=== PATIENT | female | born 1995 | race Hispanic/Latino ===

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

== ENCOUNTER 2017-03-07 05:09 | Emergency (ER) | payer OTHER ==
[~2017-03-07] VITALS: Ht 154.9 cm; Wt 59.0 kg
[2017-03-07 08:04] LABS: CONTROL LINE UCG INT CTR LINE PRESENT
[2017-03-07] MEDS ORDERED: GASTROGRAFIN SOLUTION 30ML PO ONE (09:10)
[2017-03-07 09:25] LABS: BASO % 0.6 % (0.0-1.0); EOS # 0.3 10^3/uL (0.0-0.50); EOS % 4.1 % (0.0-3.0); IMMATURE GRANULOCYTE % 0.1 % (0-0); LYMPH # 1.7 10^3/uL (1.5-6.5); LYMPH % 24.8 % (24.0-44.0); MEAN CORPUSCULAR HEMOGLOBIN 27.8 pg (27.0-33.0); MEAN CORPUSCULAR HGB CONC 32.6 g/dl (32.0-36.5); MEAN CORPUSCULAR VOLUME 85.4 fl (80.0-96.0); MONO # 0.5 10^3/uL (0.0-0.8); MONO % 7.7 % (0.0-5.0); NEUTROPHILS # 4.4 10^3/uL (1.8-7.7); NEUTROPHILS % 62.7 % (36.0-66.0); PLATELET COUNT, AUTOMATED 227 10^3/uL (150-450); RED CELL DISTRIBUTION WIDTH 13.1 % (11.5-14.5)
[2017-03-07] MEDS ORDERED: GASTROGRAFIN SOLUTION 30ML (Q9963) PO ONE (09:40)
[2017-03-07 09:48] LABS: ALBUMIN 3.6 GM/DL (3.2-5.2); ALBUMIN/GLOBULIN RATIO 0.92 (1.00-1.93); ALKALINE PHOSPHATASE 63 U/L (45-117); ALT/SGPT 24 U/L (12-78); ANION GAP 9 MEQ/L (8-16); AST/SGOT 21 U/L (15-37); BILIRUBIN,TOTAL 0.5 MG/DL (0.2-1.0); BLOOD UREA NITROGEN 9 MG/DL (7-18); CARBON DIOXIDE LEVEL 25 MEQ/L (21-32); CHLORIDE LEVEL 106 MEQ/L (98-107); CREATININE FOR GFR 0.65 MG/DL (0.55-1.02); GLUCOSE, FASTING 94 MG/DL (70-105); POTASSIUM SERUM 3.8 MEQ/L (3.5-5.1); SODIUM LEVEL 140 MEQ/L (136-145); TOTAL PROTEIN 7.5 GM/DL (6.4-8.2)
[2017-03-07] MEDS ORDERED: ISOVUE-370 76% 100ML VIAL (Q9967) As Ordered ONE (10:29)
--- NOTE | 2017-03-07 11:04 | REP ---
CT abdomen pelvis with IV and oral contrast: There are no comparisons. The visualized lung hoff are unremarkable. The hepatic parenchyma is homogeneous. The gallbladder, pancreas and spleen are unremarkable. The adrenals, kidneys and abdominal aorta are unremarkable. There is no hydronephrosis or perinephric stranding. The renal cortices enhance normally. There is no bowel distension or obstruction. Mesentery is unremarkable except that there is a minimal volume of intraperitoneal adipose. Pelvis: The appendix has a normal appearance. There is no ascites or adenopathy. The bladder is unremarkable. There is an IUD centrally placed in the endometrial canal in the uterine fundus. The uterus is otherwise unremarkable. The adnexa are unremarkable. Impression: Essentially negative CT study of the abdomen and pelvis. There is an IUD centrally placed in the uterine fundus. The uterus is tilted to the right. Signed by John Andersen MD 03/07/2017 10:55 A
[2017-03-07] MEDS ORDERED: MORPHINE 2 MG/ML 1ML SYRINGE As Ordered ONE (11:11)
[2017-03-07] MEDS ORDERED: MORPHINE 2 MG/ML 1ML SYRINGE IV ONE (11:15)
[2017-03-07] MEDS ORDERED: NAPR500T PO (11:52)
[2017-03-07 12:22] VITALS: BP 124/76
[2017-03-09] MEDS ORDERED: MACR100C43 PO (17:07)
== END 2017-03-07 12:27 | disposition home or self-care (01) ==
LOC: M ED 05:09
DX: N94.6 Dysmenorrhea, unspecified (principal); R10.9 Unspecified abdominal pain; Z87.42 Personal history of other diseases of the female genital tract; Z84.2 Family history of other diseases of the genitourinary system
CPT/HCPCS: 74177; 80053; 81001; 84703; 85025; 87088; 87186; 96374; 99283; Q9963; Q9967

== ENCOUNTER 2017-03-10 14:10 | Emergency (ER) | payer OTHER ==
[~2017-03-10] VITALS: Ht 154.9 cm; Wt 59.1 kg
[~2017-03-10 14:10] MED LIST: MACR100C43 PO; NAPR500T PO
[2017-03-10 17:09] LABS: CONTROL LINE HCG INT CTR LINE PRESENT
--- NOTE | 2017-03-10 17:20 | REPUSA ---
Clinical history: Pain. Findings: Real-time transabdominal and transvaginal ultrasound images of the pelvis were obtained. An anteverted uterus is noted, measuring 6.4 x 2.6 x 4.4 cm. The uterus demonstrates normal echotexture and echogenicity. The endometrial stripe is within normal limits. IUD is in place. The right ovary m easures 3.3 x 2.5 x 2.1 cm. The left ovary measures 3.0 x 2.6 x 2.0 cm. No adnexal masses are seen. C olor Doppler flow is seen within both ovaries. There is no evidence of free fluid. Impression: Unremarkable ultrasound examination of the pelvis.
[2017-03-10] MEDS ORDERED: BACTRIM 160MG/800MG DS TAB PO ONE (17:30)
[2017-03-10] MEDS ORDERED: BACT800T5 PO (17:30)
[2017-03-10 17:45] VITALS: BP 119/82
== END 2017-03-10 17:46 | disposition home or self-care (01) ==
LOC: M ED 14:10
DX: N39.0 Urinary tract infection, site not specified (principal); Z79.899 Other long term (current) drug therapy

== ENCOUNTER → 2017-12-05 | Outpatient (REF) ==
[2017-12-06 08:16] LABS: HERPES ZOSTER, VARICELLA IgG 1230 index (Immune >165)
== END ==
LOC: M LAB 09:28
DX: Z02.89 Encounter for other administrative examinations (principal)

== ENCOUNTER 2018-05-01 07:32 | Emergency (ER) | payer OTHER ==
[2018-05-01] MEDS: IPRATROPIUM 0.5MG/ALBUTEROL 2.5MG INH SOL UD 3ML (DUONEB)(J7620) NEB ×2 (08:29→08:58)
== END 2018-05-01 09:29 | disposition home or self-care (01) ==
LOC: M ED 07:32
DX: J20.9 Acute bronchitis, unspecified (principal); Z91.030 Bee allergy status; Z91.040 Latex allergy status
CPT/HCPCS: 71046

== ENCOUNTER 2018-05-03 14:17 | Emergency (ER) | payer OTHER | END 2018-05-03 15:54 | disposition home or self-care (01) | LOC: M ED 14:17 | DX: J20.9 Acute bronchitis, unspecified (principal); J06.9 Acute upper respiratory infection, unspecified; Z87.42 Personal history of other diseases of the female genital tract; Z91.030 Bee allergy status; Z91.040 Latex allergy status | CPT/HCPCS: 99283 ==

== ENCOUNTER 2020-01-07 07:15 | Emergency (ER) | payer MEDICAID, OTHER, SELFPAY ==
[~2020-01-07 07:15] MED LIST changes: +BACT800T5 PO; +MEDR4PAK PO; +NAPR-837 PO; -NAPR500T PO; +PROAAER10 INH
[2020-01-07] MEDS ORDERED: ONDANSETRON 4MG/2ML VIAL ONE (07:34)
[2020-01-07] MEDS ORDERED: ONDANSETRON 4MG/2ML VIAL As Ordered ONE (07:34)
[2020-02-04 13:03] LABS: APPEARANCE, URINE CLEAR (CLEAR); BACTERIA, URINE AUTO NEGATIVE (NEGATIVE); BILIRUBIN, URINE AUTO NEGATIVE (NEGATIVE); BLOOD, URINE BLOOD NEGATIVE (NEGATIVE); COLOR, URINE YELLOW (YELLOW); GLUCOSE, URINE (UA) AUTO NEGATIVE (NEGATIVE); KETONE, URINE AUTO NEGATIVE (NEGATIVE); LEUKOCYTE ESTERASE, URINE AUTO NEGATIVE (NEGATIVE); NITRITE, URINE AUTO NEGATIVE (NEGATIVE); PROTEIN, URINE AUTO NEGATIVE (NEGATIVE); RBC, URINE AUTO 1 /HPF (0-3); SPECIFIC GRAVITY URINE AUTO 1.021 (1.002-1.035); SQUAMOUS EPITHELIAL CELL UR AU 1 /HPF (0-6); WBC, URINE AUTO 0 /HPF (0-3)
[2020-03-01 03:50] LABS: BASO % 0.7 % (0.0-1.0); EOS % 0.3 % (0.0-3.0); HEMATOCRIT 38.5 % (36.0-47.0); HEMOGLOBIN 12.6 g/dl (12.0-15.5); LYMPH # 1.5 10^3/uL (1.5-5.0); LYMPH % 26.2 % (24.0-44.0); MEAN CORPUSCULAR HEMOGLOBIN 28.8 pg (27.0-33.0); MEAN CORPUSCULAR HGB CONC 32.7 g/dl (32.0-36.5); MEAN CORPUSCULAR VOLUME 87.9 fl (80.0-96.0); MONO # 0.2 10^3/uL (0.0-0.8); MONO % 3.1 % (0.0-5.0); NEUTROPHILS % 69.4 % (36.0-66.0); PLATELET COUNT, AUTOMATED 261 10^3/uL (150-450); RED BLOOD COUNT 4.38 10^6/uL (4.00-5.40); WHITE BLOOD COUNT 5.8 10^3/uL (4.0-10.0)
[2020-03-28 17:17] LABS: ALBUMIN 4.3 GM/DL (3.2-5.2); ALT/SGPT 20 U/L (12-78); BILIRUBIN,TOTAL 1.1 MG/DL (0.2-1.0); BLOOD UREA NITROGEN 12 MG/DL (7-18); CALCIUM LEVEL 8.8 MG/DL (8.5-10.1); CARBON DIOXIDE LEVEL 29 MEQ/L (21-32); CHLORIDE LEVEL 111 MEQ/L (98-107); CREATININE FOR GFR 0.84 MG/DL (0.55-1.30); GLOMERULAR FILTRATION RATE > 60.0 (>60); GLUCOSE, FASTING 125 MG/DL (70-100); LIPASE 95 U/L (73-393); POTASSIUM SERUM 4.2 MEQ/L (3.5-5.1); SODIUM LEVEL 144 MEQ/L (136-145); TOTAL PROTEIN 8.1 GM/DL (6.4-8.2)
[2020-03-28 17:24] LABS: HCG, SERUM QUALITATIVE NEGATIVE (NEGATIVE)
== END 2020-01-07 12:14 | disposition home or self-care (01) ==
LOC: M ED 07:15
DX: K52.9 Noninfective gastroenteritis and colitis, unspecified (principal)
CPT/HCPCS: 80053; 81001; 83690; 84703; 85025; 96361; 96374; 99284; J2405

== ENCOUNTER 2020-06-16 12:00 | Emergency (ER) | payer MEDICAID, OTHER ==
[~2020-06-16] VITALS: Ht 157.5 cm; Wt 65.1 kg
--- OUTSIDE RECORDS SUMMARY | 2020-06-16 12:12 | CCD ---
Author Author [facility] Organization [facility] Address Unknown Phone Unavailable Support Name Relationship Address Phone [facility] [place] [address] [facility]* Next Of Kin [address] [place] [address] [facility] Next Of Kin [address] [place], [place] [id number] UE Next Of Kin Unknown Unavailable CHAS LAZARO Next Of Kin [address] [place] [address] Re-disclosure Warning The records that you are about to access may contain information from federally-assisted alcohol or drug abuse programs. If such information is present, then the following federally mandated warning applies: This information has been disclosed to you from records protected by federal confidentiality rules (42 CFR part 2). The federal rules prohibit you from making any further disclosure of this information unless further disclosure is expressly permitted by the written consent of the person to whom it pertains or as otherwise permitted by 42 CFR part 2. A general authorization for the release of medical or other information is NOT sufficient for this purpose. The Federal rules restrict any use of the information to criminally investigate or prosecute any alcohol or drug abuse patient.The records that you are about to access may contain highly sensitive health information, the redisclosure of which is protected by Article 27-F of the [place] State Public Health law. If you continue you may have access to information: Regarding HIV / AIDS; Provided by facilities licensed or operated by the [facility] Office of Mental Health; or Provided by the [facility] Office for People With Developmental Disabilities. If such information is present, then the following [facility] mandated warning applies: This information has been disclosed to you from confidential records which are protected by state law. State law prohibits you from making any further disclosure of this information without the specific written consent of the person to whom it pertains, or as otherwise permitted by law. Any unauthorized further disclosure in violation of state law may result in a fine or senior living sentence or both. A general authorization for the release of medical or other information is NOT sufficient authorization for further disc losure. Family History Family Member Name Family Member Gender Family Member Status Date o f Status Description Data Source(s) Unknown Unknown Problem [facility] ([facility]) Insurance Providers Payer name Policy type / Coverage type Policy ID Covered green party ID Covered green party's relationship to cui Policy Cui Plan Information EMEDNY [id number] SP [id number] SELF PAY ONLY [id number] SP [id number] [id number] 2 [id number] [facility] [id number] [facility] [id number] [facility] Commercial [id number] Family Dependent [id number] Results ID Date Data Source [id number] 04/21/2020 12:00:00 AM EST [facility] Name Value Range Interpretation Code Description Data Claudia rce(s) Supporting Document(s) SARS-CoV2 Rapid Antigen [facility] This lab was ordered by [facility] and reported by [facility]. Procedure
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
[2020-06-16] MEDS ORDERED: METH-1164 PO (14:32)
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
[2020-06-16 14:51] VITALS: BP 117/70
== END 2020-06-16 14:55 | disposition home or self-care (01) ==
LOC: M ED 12:00
DX: S09.90XA Unspecified injury of head, initial encounter (principal); S13.4XXA Sprain of ligaments of cervical spine, initial encounter; V49.49XA Driver injured in collision with other motor vehicles in traffic accident, initial encounter; Y92.410 Unspecified street and highway as the place of occurrence of the external cause; J45.909 Unspecified asthma, uncomplicated; Z91.030 Bee allergy status; Z91.040 Latex allergy status

== ENCOUNTER → 2020-09-01 | Outpatient (REF) | payer OTHER ==
[~2020-09-01] MED LIST changes: +METH-1164 PO
[2020-09-01 15:40] LABS: HEMATOCRIT 40.9 % (36.0-47.0); HEMOGLOBIN 12.8 g/dl (12.0-15.5); MEAN CORPUSCULAR HEMOGLOBIN 27.9 pg (27.0-33.0); MEAN CORPUSCULAR HGB CONC 31.3 g/dl (32.0-36.5); MEAN CORPUSCULAR VOLUME 89.3 fl (80.0-96.0); PLATELET COUNT, AUTOMATED 306 10^3/uL (150-450); RED BLOOD COUNT 4.58 10^6/uL (4.00-5.40); WHITE BLOOD COUNT 8.4 10^3/uL (4.0-10.0)
[2020-09-01 16:12] LABS: ALBUMIN 4.3 GM/DL (3.2-5.2); ALT/SGPT 17 U/L (12-78); BILIRUBIN,TOTAL 0.5 MG/DL (0.2-1.0); BLOOD UREA NITROGEN 17 MG/DL (7-18); CALCIUM LEVEL 9.2 MG/DL (8.5-10.1); CARBON DIOXIDE LEVEL 28 MEQ/L (21-32); CHLORIDE LEVEL 105 MEQ/L (98-107); GLOMERULAR FILTRATION RATE > 60.0 (>60); GLUCOSE, FASTING 87 MG/DL (70-100); POTASSIUM SERUM 4.1 MEQ/L (3.5-5.1); SODIUM LEVEL 139 MEQ/L (136-145); TOTAL PROTEIN 8.2 GM/DL (6.4-8.2)
[2020-09-01 16:19] LABS: TOTAL 25(OH) VITAMIN D 16.7 NG/ML (30.0-100.0)
[2020-09-01 16:59] LABS: HIV 1&2 SCREEN CENTAUR NEGATIVE (NEGATIVE)
[2020-09-01 19:51] LABS: CHLAMYDIA DNA AMPLIFICATION NEGATIVE (NEGATIVE); GC DNA AMPLIFICATION NEGATIVE (NEGATIVE)
== END ==
LOC: M SFHCPLAZ 11:59
PROVIDERS: ATTEND Physician Assistant
DX: Z00.00 Encounter for general adult medical examination without abnormal findings (principal); Z20.2 Contact with and (suspected) exposure to infections with a predominantly sexual mode of transmission